=== PATIENT | male | born 1980 | race African-American/Black ===

== ENCOUNTER 2016-09-07 15:38 | Observation (INO) | payer BC, OTHER ==
[~2016-09-07] VITALS: Ht 190.5 cm; Wt 110.0 kg
[~2016-09-07 15:38] MED LIST: ALBU1AER INH; PRED20 PO
[2016-09-07 15:40] VITALS: BP 129/82; PULSE 84; RESP 20; TEMP 97.9; O2SAT 98
--- NOTE | 2016-09-07 15:57 | PD ---
HPI Chief Complaint: Chest Pain Time Seen by Provider: 15:56 Travel History International Travel<30 days: No Contact w/Intl Traveler<30days: No Traveled to known affect area: No History of Present Illness HPI 35-year-old male came to the emergency room with history of substernal chest pain for past 3 days. Patient says that he has a continuous pain for past 3 days which is like somebody sitting on his chest. He weighs the pain 7 out of 10. There is no radiation and he points to his substernal area. Patient is a smoker of half a pack cigarettes for past more than 15 years. His vital signs were stable. Patient has not seen a primary care in many years. He has significant family history of coronary artery disease. [facility] Past Medical History Narrative Medical List of his past medical history as reviewed from the nursing note. Asthma: Yes Diminished Hearing: No Respiratory: Yes (ASTHMA) Sickle Cell Disease: No Social History Alcohol Use: Yes (4 PACK DAILY) Tobacco Use: Yes (2 PPD) Substance Use: Yes Allergies-Medications (Allergen,Severity, Reaction): Coded Allergies: No Known Allergies (Verified , 09/07/16) Comments No known drug allergies. Reported Meds & Prescriptions Reported Meds & Active Scripts Active No Active Prescriptions or Reported Medications Narrative Medication List of his home medications reviewed from the nursing note. Review of Systems Except as stated in HPI: all other systems reviewed are Neg Physical Exam Narrative GENERAL: Awake, alert, anxious, mild distress SKIN: Warm and dry. HEAD: Atraumatic. Normocephalic. EYES: Pupils equal and round. No scleral icterus. No injection or drainage. ENT: No nasal bleeding or discharge. Mucous membranes pink and moist. NECK: Trachea midline. No JVD. CARDIOVASCULAR: Regular rate and rhythm. No murmur appreciated. RESPIRATORY: No accessory muscle use. Clear to auscultation. Breath sounds equal bilaterally. GASTROINTESTINAL: Abdomen soft, non-tender, nondistended. Hepatic and splenic margins not palpable. MUSCULOSKELETAL: No obvious deformities. No clubbing. No cyanosis. No edema. NEUROLOGICAL: Awake and alert. No obvious cranial nerve deficits. Motor grossly within normal limits. Normal speech. PSYCHIATRIC: Appropriate mood and affect; insight and judgment normal. Data Data Last Documented VS Vital Signs Date Time Temp Pulse Resp B/P Pulse Ox O2 Delivery O2 Flow Rate FiO2 09/07/16 15:40 97.9 84 20 129/82 98 Room Air Orders Electrocardiogram (09/07/16 16:03) Basic Metabolic Panel (Bmp) (09/07/16 16:03) Ckmb (Isoenzyme) Profile (09/07/16 16:03) Complete Blood Count With Diff (09/07/16 16:03) Magnesium (Mg) (09/07/16 16:03) Prothrombin Time / Inr (Pt) (09/07/16 16:03) Act Partial Throm Time (Ptt) (09/07/16 16:03) Troponin I (09/07/16 16:03) Lipase (09/07/16 16:03) Chest, Single Ap (09/07/16 16:03) Ecg Monitoring (09/07/16 16:03) Bilateral Bp Monitoring (09/07/16 16:03) Iv Access Insert/Monitor (09/07/16 16:03) Oximetry (09/07/16 16:03) Oxygen Administration (09/07/16 16:03) Aspirin Chew (Aspirin Chew) (09/07/16 16:15) Sodium Chloride 0.9% Flush (Ns Flush) (09/07/16 16:15) Pantoprazole Inj (Protonix Inj) (09/07/16 16:15) CKMB (09/07/16 16:12) CKMB% (09/07/16 16:12) Admit Order (Ed Use Only) (09/07/16 16:57) Place In Observation (09/07/16 16:57) Activity Bed Rest With Brp (09/07/16 16:57) Vital Signs (Adult) Q4H (09/07/16 16:57) Cardiac Rhythm .As Directed (09/07/16 16:57) ^ Notify Dr: Other .PRN (09/07/16 16:57) ^ Notify . Parameters (09/07/16 16:57) Resp Oxygen Nasal Cannula (09/07/16 ) Diet Heart Healthy (09/07/16 Dinner) ^ Obtain (09/07/16 16:57) Sodium Chloride 0.9% Flush (Ns Flush) (09/07/16 17:00) Sodium Chloride 0.9% Flush (Ns Flush) (09/07/16 21:00) Acetaminophen (Tylenol) (09/07/16 17:00) Ondansetron Inj (Zofran Inj) (09/07/16 17:00) Nitroglycerin Sl (Nitrostat Sl) (09/07/16 17:00) Home Health Lpn / Telemetry MICHAEL.Q8H (09/07/16 16:57) Labs Laboratory Tests Test 09/07/16 16:12 White Blood Count 7.4 TH/MM3 Red Blood Count 4.55 MIL/MM3 Hemoglobin 13.1 GM/DL Hematocrit 38.3 % Mean Corpuscular Volume 84.3 FL Mean Corpuscular Hemoglobin 28.7 PG Mean Corpuscular Hemoglobin 34.1 % Concent Red Cell Distribution Width 13.9 % Platelet Count 258 TH/MM3 Mean Platelet Volume 8.9 FL Neutrophils (%) (Auto) 64.5 % Lymphocytes (%) (Auto) 27.6 % Monocytes (%) (Auto) 4.2 % Eosinophils (%) (Auto) 2.5 % Basophils (%) (Auto) 1.2 % Neutrophils # (Auto) 4.8 TH/MM3 Lymphocytes # (Auto) 2.0 TH/MM3 Monocytes # (Auto) 0.3 TH/MM3 Eosinophils # (Auto) 0.2 TH/MM3 Basophils # (Auto) 0.1 TH/MM3 CBC Comment DIFF FINAL Differential Comment Prothrombin Time 11.2 SEC Prothromb Time International 1.0 RATIO Ratio Activated Partial 26.8 SEC Thromboplast Time Sodium Level 141 MEQ/L Potassium Level 3.8 MEQ/L Chloride Level 107 MEQ/L Carbon Dioxide Level 26.9 MEQ/L Anion Gap 7 MEQ/L Blood Urea Nitrogen 15 MG/DL Creatinine 0.99 MG/DL Estimat Glomerular Filtration 106 ML/MIN Rate Random Glucose 121 MG/DL Calcium Level 8.6 MG/DL Magnesium Level 2.3 MG/DL Total Creatine Kinase 576 U/L Creatine Kinase MB 5.0 NG/ML Creatine Kinase MB % 0.9 % Troponin I LESS THAN 0.02 NG/ML Lipase 119 U/L [facility] Medical Decision Making Medical Screen Exam Complete: Yes Emergency Medical Condition: Yes Medical Record Reviewed: Yes Interpretation(s) Twelve-lead EKG was reviewed by me. Normal sinus rhythm, normal axis, nonspecific ST-T wave changes. Heart rate of 78 bpm. Differential Diagnosis ACS, non-STEMI, nonspecific chest pain Narrative Course 5:03 PM blood test is back and CPK slightly elevated. Troponin is negative. However patient does have risk factors in the form off smoking and family history. Prefer to admit this patient to the chest pain center to rule out ACS. Procedures EKG Prior to Arrival: Yes Diagnosis Primary Impression: Chest pain Qualified Code: R07.9 - Chest pain, unspecified type Admitting Information Admitting Physician Requests: Observation Scripts No Active Prescriptions or Reported Meds Susanna Diop MD Sep 07, 2016 15:57 Admitting Physician Requests: Observation Scripts No Active Prescriptions or Reported Meds Susanna Diop MD Sep 07, 2016 15:57
[2016-09-07] MEDS ORDERED: SODIUM CHLORIDE 0.9% FLUSH 5 ML FLUSH IVF PRN ×2 (16:15→17:00)
[2016-09-07] MEDS ORDERED: PANTOPRAZOLE SODIUM 40 MG VIAL IV PUSH ONE (16:15)
[2016-09-07] MEDS ORDERED: ASPIRIN 81 MG CHEW TAB PO ONE (16:15)
[2016-09-07 16:27] LABS: AUTOMATED NEUTROPHIL # 4.8 TH/MM3 (1.8-7.7); BASOPHIL # 0.1 TH/MM3 (0-0.2); BASOPHIL % 1.2 % (0.0-2.0); EOSINOPHIL # 0.2 TH/MM3 (0-0.4); EOSINOPHIL % 2.5 % (0.0-4.0); HEMATOCRIT 38.3 % (39.0-51.0); HEMO FLAGS DIFF FINAL; LYMPH % 27.6 % (9.0-44.0); MEAN CELL VOLUME 84.3 FL (80.0-100.0); MEAN CORPUSCULAR HEMOGLOBIN 28.7 PG (27.0-34.0); MEAN CORPUSCULAR HGB CONC 34.1 % (32.0-36.0); MONO % 4.2 % (0.0-8.0); NEUT % 64.5 % (16.0-70.0); PLATELET COUNT 258 TH/MM3 (150-450); RED BLOOD COUNT 4.55 MIL/MM3 (4.50-5.90); RED CELL DISTRIBUTION WIDTH 13.9 % (11.6-17.2); WHITE BLOOD COUNT 7.4 TH/MM3 (4.0-11.0)
[2016-09-07 16:37] LABS: APTT (PATIENT) 26.8 SEC (24.3-30.1); PROTHROMBIN TIME - PATIENT 11.2 SEC (9.8-11.6)
[2016-09-07 16:45] LABS: ANION GAP 7 MEQ/L (5-15); BICARBONATE 26.9 MEQ/L (21.0-32.0); BLOOD UREA NITROGEN 15 MG/DL (7-18); CHLORIDE 107 MEQ/L (98-107); GLOMERULAR FILTRATION RATE 106 ML/MIN (>89); MAGNESIUM 2.3 MG/DL (1.5-2.5); SODIUM (NA) 141 MEQ/L (136-145)
[2016-09-07 16:46] LABS: POTASSIUM 3.8 MEQ/L (3.5-5.1)
[2016-09-07 16:49] LABS: CREATINE KINASE 576 U/L (39-308)
[2016-09-07 17:00] VITALS: BP 128/74; PULSE 82; RESP 18; O2SAT 95
[2016-09-07] MEDS ORDERED: NITROGLYCERIN 0.4 MG SL 25 TABS/BTL SL PRN (17:00)
[2016-09-07] MEDS ORDERED: ONDANSETRON HCL 4 MG/2 ML VIAL IV PRN (17:00)
[2016-09-07] MEDS ORDERED: ACETAMINOPHEN 500 MG CPLT PO PRN (17:00)
--- NOTE | 2016-09-07 17:05 | RADRPT ---
EXAM DATE/TIME: 09/07/2016 16:28 [facility] COMPARISON: No previous studies available for comparison. INDICATIONS : Mid Sternal chest pains x3 days MEDICAL HISTORY : Asthma SURGICAL HISTORY : None. ENCOUNTER: Initial ACUITY: 1 day PAIN SCORE: 7/10 LOCATION: Bilateral chest FINDINGS: A single view of the chest demonstrates the lungs to be symmetrically aerated without evidence of mas s, infiltrate or effusion. The cardiomediastinal contours are unremarkable. Osseous structures are intact. CONCLUSION: The lungs are clear. Angel Koenig MD on September 07, 2016 at 17:04 Board Certified Radiologist. This report was verified electronically.
--- NOTE | 2016-09-07 17:51 | EKG ---
Date Performed: 09/07/2016 Time Performed: 16:00:24 PTAGE: 35 years EKG: Sinus rhythm NORMAL ECG NO PREVIOUS TRACING DOCTOR: Ernie June Interpretating Date/Time 09/07/2016 17:49:43
[2016-09-07 18:00] VITALS: BP 132/74; PULSE 76; RESP 19; O2SAT 96
[2016-09-07 19:26] VITALS: BP 144/71; PULSE 74; RESP 20; O2SAT 98
[2016-09-07] MEDS ORDERED: LIDOCAINE VISCOUS 2% SOLN 15 ML UDC SWISH-SWAL ONE (20:00)
[2016-09-07] MEDS ORDERED: ALUMINUM/MAGNESIUM/SIMETH 30 ML CUP PO ONE (20:00)
[2016-09-07 20:13] LABS: CREATINE KINASE 473 U/L (39-308)
[2016-09-07] MEDS: SODIUM CHLORIDE 0.9% FLUSH 5 ML FLUSH IVF SCH (20:46)
[2016-09-07 21:00] VITALS: BP 112/67; PULSE 68; RESP 16; TEMP 96.9; O2SAT 100
--- NOTE | 2016-09-07 22:08 | EKG ---
Date Performed: 09/07/2016 Time Performed: 19:32:07 PTAGE: 35 years EKG: Sinus rhythm NORMAL ECG PREVIOUS TRACING : 09/07/2016 16.00 DOCTOR: Zander Eastman Interpretating Date/Time 09/07/2016 22:06:54
[2016-09-07 23:06] LABS: CREATINE KINASE 484 U/L (39-308)
[2016-09-07 23:19] LABS: CKMB 4.1 NG/ML (0.5-3.6)
[2016-09-08 00:19] VITALS: BP 118/67; PULSE 67; RESP 18; TEMP 98; O2SAT 98
[2016-09-08 04:00] VITALS: BP 118/67; PULSE 67; RESP 18; TEMP 97.6; O2SAT 97
[2016-09-08 04:47] VITALS: O2SAT 98
[2016-09-08] MEDS: PANTOPRAZOLE SOD 40 MG DELAYED RELEASE TAB PO SCH ×2 (06:00→09:15)
[2016-09-08 08:07] VITALS: BP 126/67; PULSE 75; RESP 20; TEMP 98; O2SAT 95
--- NOTE | 2016-09-08 08:38 | MH ---
cc: LINCOLN OLIVERA MD DATE OF ADMISSION 09/07/2016 DATE OF 1980 CHIEF COMPLAINT Chest pain. HISTORY OF PRESENT ILLNESS This is a 35-year-old patient presents to the emergency room with an onset of chest pain 3 days ago. The patient states after eating in fact, every time after eating he develops substernal chest pressure that does not subside until about 45-60 minutes after eating. Position does not affect his pain. There are no associated symptoms, although first time this chest discomfort happened he was nauseous. He describes the feeling as a pressure that it is "wall inside my chest". No associated symptoms. Precipitating factors is eating. No known relieving factors. The patient does not have a history of acid reflux. Denies a sour taste in his mouth and has not tried any zrry-pho-zmtlzex remedies. PAST MEDICAL HISTORY Includes: Asthma. FAMILY HISTORY Noncontributory for any early onset cardiovascular disease. SOCIAL HISTORY He has smoked a one-half pack of cigarettes since age of 16. He continues to smoke. He endorses he drinks alcohol although is very vague in to how much he drinks. Denies any illegal drug use. No known hypertension, diabetes, hyperlipidemia. States he is active, rides his bike to work. He works at [employer]. When he rides his bike over the past 3 days chest discomfort as described above does return although in a much more "mild form". PAST CARDIAC TESTING None. ALLERGIES HE HAS NO ALLERGIES TO MEDICINES. MEDICATIONS He does not take any prescription medicines or vitamins or supplements. REVIEW OF SYSTEMS GENERAL: He has been in his general state of health with no recent illness, fatigue, fevers, chills or change in appetite despite this feeling that he gets after eating. HEENT: No headache or visual changes. No dysphagia. States he does not feel after eating food gets stuck anywhere in his esophagus. CARDIOVASCULAR: As stated above. Denies palpitations intermittent leg pain or dizziness. RESPIRATORY: No shortness of breath, cough, wheeze, hemoptysis. ABDOMEN: No nausea, vomiting, diarrhea, in fact, he has not had a bowel movement in over 3 days, this is uncommon for him. No pain, distension, blood in the stool or dark stool. GENITOURINARY: No dysuria or urgency, frequency or hematuria. EXTREMITIES: No lower leg edema. MUSCULOSKELETAL: No change in range of motion. NEUROLOGICAL: No difficulty with balance, motor or sensory deficits, loss of consciousness, change in memory. PSYCHIATRIC: No anxiety or depression. PHYSICAL EXAMINATION VITAL SIGNS: Temperature is 97.9, pulse 84, respiratory 20, blood pressure 129/82 and pulse oximetry 98% on room air. GENERAL: He is alert, well-nourished, well-developed in no acute distress pleasant -[place] male. HEENT: Head is normocephalic, atraumatic. Eyes, sclerae are clear. Pupils are equal and round. Ear, nose, and throat, mucous membranes are pink and moist. NECK: Supple. Trachea is midline. CARDIOVASCULAR: Regular rate and rhythm without murmur, rub or gallop. No JVD. S1-S2. No S3. No S4. LUNGS: Clear lungs throughout bilaterally with no crackles, wheeze or rhonchi. He has a symmetric chest rise. ABDOMEN: Soft, nondistended. No masses. Positive bowel tones. He is tender in the epigastric area. BACK: No CVA tenderness and no scoliosis. EXTREMITIES: Pulses +2 x4. No dependent edema. MUSCULOSKELETAL: Normal tone x4. He is tender in the substernal chest wall upon palpation both left and right. No obvious deformities. NEUROLOGICAL: Cranial nerves II-XII grossly intact. Motor strength 5/5. PSYCHIATRIC: He is alert, oriented x3, has a pleasant affect appropriate to mood, insight and judgment. SKIN: Warm and dry. Normal turgor, normal texture with no lesions or rashes. LABORATORY CBC is unremarkable. Chemistry has a random glucose of 121 otherwise unremarkable. Two sets of cardiac enzymes are negative. Total creatinine kinase first set is 576. Second is 473. Coagulation is unremarkable. IMAGING Chest x-ray read by the radiologist has conclusion of lungs are clear. And first EKG shows a normal sinus rhythm with no ST or T segment changes. ASSESSMENT/PLAN 1. Chest pain. The patient has been admitted to the chest pain center. He will undergo three sets of EKGs, cardiac enzymes and be monitored overnight. He will be seen and evaluated by Dr. Lincoln Olivera in the a.m. This has been discussed with both the patient and his practice management consultant who is at bedside and they are agreeable to this plan of care. Discussed the likelihood that he may undergo an exercise stress test in the a.m. if skein tier feels it is warranted and he is agreeable to this plan of care as well. 2. Gastroesophageal reflux disease. Protonix 40 mg oral and GI cocktail has been ordered. 3. The patient has been encouraged to establish with a primary care provider. He will most likely be discharged in the morning if all his testing comes back unremarkable. Dictated by: KEVIN Reagan MD DINORAH Villalba/KK /8:18 PM /8:37 AM
[2016-09-08] MEDS ORDERED: ASPIRIN 325 MG TAB PO SCH (09:00)
[2016-09-08] MEDS: SODIUM CHLORIDE 0.9% FLUSH 5 ML FLUSH IVF SCH (09:15)
[2016-09-08 11:42] VITALS: PULSE 68
[2016-09-08] MEDS ORDERED: IOHEXOL 350 MG/ML 10 ML VIAL (for RAD DIAG) IV ONE (12:18)
[2016-09-08 12:22] VITALS: BP 115/70; PULSE 77; RESP 20; TEMP 97.5; O2SAT 99
--- NOTE | 2016-09-08 12:31 | RADRPT ---
EXAM DATE/TIME: 09/08/2016 12:13 [facility] COMPARISON: CHEST SINGLE AP, September 07, 2016, 16:28. INDICATIONS : Chest pain. Difficulty breathing. IV CONTRAST: 70 cc Omnipaque 350 (iohexol) IV RADIATION DOSE: 20.05 CTDIvol (mGy) MEDICAL HISTORY : None SURGICAL HISTORY : None. ENCOUNTER: Initial ACUITY: 3 days PAIN SCALE: 4/10 LOCATION: Bilateral chest TECHNIQUE: Volumetric scanning of the chest was performed using a pulmonary embolism protocol MIP images were re constructed. Using automated exposure control and adjustment of the mA and/or kV according to patien t size, radiation dose was kept as low as reasonably achievable to obtain optimal diagnostic quality images. FINDINGS: PULMONARY ARTERIES: No filling defects are seen in the pulmonary arteries through the segmental level. LUNGS: There is no consolidation or pneumothorax . No concerning pulmonary nodule is visualized. Few small blind noted in the upper lobes. PLEURAE: There is no pleural thickening or pleural effusion. MEDIASTINUM: There is good visualization of the great vessels of the middle mediastinum. No evidence of mediastin al or hilar adenopathy/mass. Small retrocardiac hiatal hernia MUSCULOSKELETAL: Within normal limits for patient age. MISCELLANEOUS: The visualized upper abdominal organs demonstrate no acute abnormality. CONCLUSION: No evidence of pulmonary embolism or acute cardiopulmonary process. Few small blind noted in the uppe r lobes. Negative for pulmonary embolization. Adriel Young MD on September 08, 2016 at 12:27 Board Certified Radiologist. This report was verified electronically.
--- NOTE | 2016-09-08 12:40 | HHI.DCPOC ---
Discharge Care Plan Diagnosis: (1) Chest pain (2) Tobacco abuse Goals to Promote Your Health * To prevent worsening of your condition and complications * To maintain your health at the optimal level Directions to Meet Your Goals Take your medications as prescribed Follow your dietary instruction Follow activity as directed Keep your appointments as scheduled Take your immunizations and boosters as scheduled If your symptoms worsen call your PCP, if no PCP go to Urgent Care Center or Emergency Room Smoking is Dangerous to Your Health. Avoid second hand smoke Call the 24-hour hour crisis hotline for domestic abuse at Darian Dickinson Sep 08, 2016 12:40
--- NOTE | 2016-09-08 13:35 | EKG ---
Date Performed: 09/07/2016 Time Performed: 22:45:16 PTAGE: 35 years EKG: Sinus rhythm WITH SINUS ARRHYTHMIA NORMAL ECG PREVIOUS TRACING : 09/07/2016 19.32 Since previous tracing, no significant change noted DOCTOR: Lincoln Olivera Interpretating Date/Time 09/08/2016 13:33:49
--- NOTE | 2016-09-08 13:41 | TR ---
Date Performed: 09/08/2016 Time Performed: 09:26:51 DOCTOR: Lincoln Olivera DRUG LIST: CLINICAL HISTORY: CHEST PAIN/RULE OUT ACS REASON FOR TEST: REASON FOR ENDING: OBSERVATION: CONCLUSION: lyla protocol. NO CP. TEST STOPPED AFTER EXCEEDING GOAL HR SECONDARY TO SOB AND LEG FATIGUE.Maximum MJ=865 % Max HR Achieved=90.0% Maximum JK=329/70 Total Exercise Time=10:20 COMMENTS: Patient exercised using the Lyla protocol. No electrocardiographic changes were seen to suggest ischemia. Hemodynamic response to exercise was normal. No significant arrhythmia was prese nt.
== END 2016-09-08 13:47 | disposition home or self-care (01) ==
LOC: NEPC 15:38 → NEDA 16:59 → NEPFCDU 20:12
PROVIDERS: ADMIT Family Medicine; ATTEND Family Medicine
DX: R07.9 Chest pain, unspecified (principal); J45.909 Unspecified asthma, uncomplicated; K21.9 Gastro-esophageal reflux disease without esophagitis; Z72.0 Tobacco use; Z82.49 Family history of ischemic heart disease and other diseases of the circulatory system
CPT/HCPCS: 71010; 71275; 80048; 82550; 82552; 83690; 83735; 84484; 85025; 85379; 85610; 85730; 93005; 93017; 96374; 99285; C9113; G0378; Q9967

== ENCOUNTER 2017-01-17 14:33 | Emergency (ER) | payer SELFPAY ==
[2017-01-17 14:34] VITALS: BP 120/75; PULSE 86; RESP 20; TEMP 98.6; O2SAT 98
[2017-01-17] MEDS ORDERED: AUGM875T3 PO (15:08)
[2017-01-17] MEDS ORDERED: IBUP800T23 PO (15:08)
[2017-01-17] MEDS ORDERED: MOME17I EACH NARE (15:08)
--- NOTE | 2017-01-17 15:09 | PD ---
HPI Chief Complaint: Cold / Flu Symptoms Time Seen by Provider: 15:06 Travel History International Travel<30 days: No Contact w/Intl Traveler<30days: No Traveled to known affect area: No History of Present Illness HPI 36-year-old male presents to emergency Department with complaint of nasal congestion, facial pressure, headache, ear pressure, throat irritation 4 days. Reports occasional cough. Denies chest tightness, shortness of breath, wheezing. Says he is coughing up green sputum. Reports feeling fever and chills, but has not taken his temperature and Reported MAXIMUM TEMPERATURE. Denies nausea, vomiting, abdominal pain. Has been taking [id number] Mucinex for symptom management. No known allergies. No other medical complaints. No other modifying factors or associated signs and symptoms. PFSH Past Medical History Asthma: Yes Cardiovascular Problems: No Diminished Hearing: No Respiratory: Yes (ASTHMA) Sickle Cell Disease: No Tetanus Vaccination: > 5 Years Influenza Vaccination: Yes Family History Family Myocardial Infarction: Yes Social History Alcohol Use: Yes (ocassionally) Tobacco Use: Yes (1 PPD) Substance Use: No Allergies-Medications (Allergen,Severity, Reaction): Coded Allergies: No Known Allergies (Verified , 01/17/17) Reported Meds & Prescriptions Reported Meds & Active Scripts Active Ibuprofen 800 Mg Tab 800 Mg PO Q6HR PRN Nasonex Nasal [place] (Mometasone Furoate) 50 Mcg/Act Naspr 2 [place] EACH NARE DAILY PRN Augmentin (Amoxicillin-Clavulanate) 875-125 Mg Tab 1 Tab PO BID 7 Days Review of Systems Except as stated in HPI: all other systems reviewed are Neg Physical Exam Narrative GENERAL: Well-nourished, well-developed male patient, in no acute distress; afebrile, nontoxic-appearing SKIN: Warm and dry. No rash. HEAD: Atraumatic. Normocephalic. Frontal and maxillary sinus tenderness on palpation. EYES: Pupils equal and round at 3 mm with brisk reaction. No scleral icterus. No injection or drainage. PERRLA. ENT: Mucosa pink and moist. Oropharynx with erythema; without exudates or tonsillar edema.. No uvular edema. No uvular, palatal, or tonsillar deviation. Airway patent. EARS: Bilateral pinnae and external canals appear within normal limits. Bilateral tympanic membranes without erythema, dullness or perforation. NECK: Trachea midline. No lymphadenopathy. CARDIOVASCULAR: Regular rate and rhythm. No murmur appreciated. RESPIRATORY: No accessory muscle use. Clear to auscultation. Breath sounds equal bilaterally. GASTROINTESTINAL: Abdomen soft, non-tender, nondistended. Hepatic and splenic margins not palpable. Bowel sounds are active 4 quadrants. MUSCULOSKELETAL: No obvious deformities. No clubbing. No cyanosis. No edema. NEUROLOGICAL: Awake and alert. Oriented 3. No obvious cranial nerve deficits. Motor grossly within normal limits. Normal speech. Moves all extremities. 5/5 strength to all extremities. PSYCHIATRIC: Appropriate mood and affect; insight and judgment normal. Data Data Last Documented VS Vital Signs Date Time Temp Pulse Resp B/P Pulse Ox O2 Delivery O2 Flow Rate FiO2 01/17/17 14:59 18 98 Room Air 01/17/17 14:34 98.6 86 120/75 MDM Medical Decision Making Medical Screen Exam Complete: Yes Emergency Medical Condition: Yes Medical Record Reviewed: Yes Differential Diagnosis Viral illness, sinusitis, upper respiratory infection, influenza, bronchitis Narrative Course 36-year-old male physical examination history of present illness consistent with sinusitis. Patient is afebrile and nontoxic-appearing. Reports subjective fever and chills. Augmentin, Nasonex nasal spray, ibuprofen prescribed for home. Patient verbalizes understanding and agreement with treatment plan. Patient is medically cleared and stable for discharge. Discussed reasons to return to the emergency department. Instructed patient to follow up with primary care provider. Patient agrees with treatment plan. The patients vital signs are stable and the patient is stable for outpatient follow- up and treatment. Patient discharged home, stable and in no acute distress. Diagnosis Primary Impression: Sinusitis Qualified Code: J32.9 - Sinusitis, unspecified chronicity, unspecified location Referrals: Primary Care Physician Patient Instructions: Cold Symptoms (ED), General Instructions, Safe Use of Cough and Cold Medicines (ED), Sinusitis (ED) Departure Forms: Tests/Procedures, Work Release Enter return to work date: Jan 19, 2017 Additional Instructions: Antibiotics as prescribed and complete full course Ibuprofen or Tylenol as instructed and as needed for fever/pain [id number] cough and cold medications as directed and as needed for symptom management Get plenty of sleep/rest Drink plenty of fluids to prevent dehydration; popsicles and Gatorade Use an air humidifier/turn off ceiling fans Follow-up with primary care provider Return immediately to the emergency department with worsening of symptoms Med/Other Pt SpecificInfo: Prescription(s) given Scripts Ibuprofen 800 Mg [id number] Mg PO Q6HR PRN (PAIN) #30 TAB Ref 0 Prov:Kizzy Malone 01/17/17 Mometasone Nasal [place] (Nasonex Nasal [place])50 Mcg/Act Naspr2 [place] EACH NARE DAILY PRN (NASAL CONGESTION) #1 BOTTLE Ref 0 Prov:Kizzy Malone 01/17/17 Amoxicillin-Clavulanate (Augmentin)875-125 Mg Tab1 Tab PO BID 7 Days Ref 0 Prov:Kizzy Malone 01/17/17 Disposition: 01 DISCHARGE HOME Condition: Stable Kizzy Malone Jan 17, 2017 15:09
[2017-01-17 15:27] VITALS: BP 118/76; TEMP 97.8
== END 2017-01-17 15:27 | disposition home or self-care (01) ==
LOC: NEPK 14:33
DX: J32.9 Chronic sinusitis, unspecified (principal); R05 Cough; J45.909 Unspecified asthma, uncomplicated; F17.210 Nicotine dependence, cigarettes, uncomplicated; R50.9 Fever, unspecified
CPT/HCPCS: 99284

== ENCOUNTER 2017-02-10 10:20 | Emergency (ER) | payer SELFPAY ==
[~2017-02-10 10:20] MED LIST changes: -ALBU1AER INH; +AUGM875T3 PO; +IBUP800T23 PO; +MOME17I EACH NARE; -PRED20 PO
[2017-02-10 10:21] VITALS: BP 123/82; PULSE 73; RESP 18; TEMP 98.5; O2SAT 99
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
[2017-02-10] MEDS ORDERED: IBUP800T23 PO (11:56)
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
[2017-02-10] MEDS ORDERED: IBUPROFEN 800 MG TAB PO ONE (13:30)
== END 2017-02-10 13:51 | disposition home or self-care (01) ==
LOC: NEPD 10:20
DX: S69.91XA Unspecified injury of right wrist, hand and finger(s), initial encounter (principal); S00.83XA Contusion of other part of head, initial encounter; S99.911A Unspecified injury of right ankle, initial encounter; Y04.2XXA Assault by strike against or bumped into by another person, initial encounter; Y00.XXXA Assault by blunt object, initial encounter; Y93.9 Activity, unspecified; Y92.9 Unspecified place or not applicable; Y99.9 Unspecified external cause status
CPT/HCPCS: 70450; 70486; 73130; 73610

== ENCOUNTER 2017-07-22 18:18 | Emergency (ER) | payer SELFPAY ==
[~2017-07-22] VITALS: Ht 190.5 cm; Wt 100.0 kg
[~2017-07-22 18:18] MED LIST changes: -AUGM875T3 PO; +IBUP1TAB7 PO; -IBUP800T23 PO; -MOME17I EACH NARE
[2017-07-22 18:19] VITALS: BP 140/80; PULSE 103; RESP 14; TEMP 98.4; O2SAT 99
[2017-07-22] MEDS ORDERED: TETANUS/DIPHTHERIA TOXOID ADULT 0.5 ML VIAL IM ONE (19:15)
[2017-07-22] MEDS ORDERED: LIDOCAINE HCL 1% 50 ML VIAL INFIL ONE (19:15)
--- NOTE | 2017-07-22 19:31 | PD ---
HPI Chief Complaint: Laceration/Skin Injury Time Seen by Provider: 19:10 Travel History International Travel<30 days: No Contact w/Intl Traveler<30days: No Traveled to known affect area: No History of Present Illness HPI [id number] male presents for evaluation of a laceration to left fourth finger. He reports that he was attempting to pry apart 2 frozen hamburgers with a knife when the knife slipped and cut his finger. He has pain, throbbing , worse with palpation, associated bleeding. Denies numbness, tingling, range of motion limitation. Last tetanus vaccination one ago. No other complaints. PFSH Past Medical History Asthma: Yes Cardiovascular Problems: No Diminished Hearing: No Respiratory: Yes (ASTHMA) Sickle Cell Disease: No Family History Family Myocardial Infarction: Yes Social History Alcohol Use: Yes (ocassionally) Tobacco Use: Yes (1/2 PPD) Substance Use: No Allergies-Medications (Allergen,Severity, Reaction): Coded Allergies: No Known Allergies (Verified Adverse Reaction, Unknown, 07/22/17) Reported Meds & Prescriptions Reported Meds & Active Scripts Active No Active Prescriptions or Reported Medications Review of Systems General / Constitutional: No: Fever, Chills Musculoskeletal: No: Limited ROM Skin: Positive Other (positive for laceration, pain, bleeding) Neurologic: No: Paresthesia Physical Exam Narrative GENERAL: Well-nourished male in no acute distress SKIN: Warm and dry. 1.5 cm linear laceration to the medial aspect of the distal left fourth finger. There is mild bleeding with no pulsating blood. CARDIOVASCULAR: Regular rate and rhythm. No murmur appreciated. RESPIRATORY: No accessory muscle use. Clear to auscultation. Breath sounds equal bilaterally. Extremities: Skin as noted above. The patient has full flexion and extension of the affected digit. Distal sensation is preserved on the medial and lateral aspect. Capillary refill less than 2 seconds. Data Data Last Documented VS Vital Signs Date Time Temp Pulse Resp B/P (MAP) Pulse Ox O2 Delivery O2 Flow Rate FiO2 07/22/17 18:19 98.4 103 14 140/80 (100) 99 Orders Orders Lidocaine 1% Inj (50 Ml) (Xylocaine 1% I (07/22/17 19:15) Tetanus/Diphtheria Tox Adult (Tetanus/Di (07/22/17 19:15) MDM Medical Decision Making Medical Screen Exam Complete: Yes Emergency Medical Condition: Yes Medical Record Reviewed: Yes Differential Diagnosis Cutaneous laceration, neurovascular injury, open fracture, flexor tendon injury Narrative Course 36-year-old male presents for evaluation of a laceration to the distal left fourth finger. The laceration will be repaired with sutures, he verbally consents. Procedures Procedure Narrative LACERATION LOCATION: Left fourth finger LENGTH: 1.5 cm NUMBER OF STITCHES/CHRISTIAN: 6 REPAIR: The area of the laceration was prepped with Betadine and sterilely draped. The laceration was infiltrated with 1% lidocaine digital block. The wound was copiously irrigated and explored without evidence of foreign body, tendon injury or neurovascular injury. The wound was closed using 5-0 PROLENE simple interrupted. This was a single layer repair. A sterile dressing was applied. The patient was advised to keep the dressing clean and dry. Patient tolerated the procedure well. Diagnosis Primary Impression: Finger laceration Additional Instructions: Wash gently with soap and water and apply antibiotic cream and clean bandages daily. Return in 10-14 days for suture removal. Med/Other Pt SpecificInfo: Wound Care Scripts No Active Prescriptions or Reported Meds Disposition: 01 DISCHARGE HOME Condition: Stable Vinny Bradshaw Jul 22, 2017 19:31
== END 2017-07-22 20:01 | disposition home or self-care (01) ==
LOC: NEPD 18:18
DX: S61.215A Laceration without foreign body of left ring finger without damage to nail, initial encounter (principal); F17.200 Nicotine dependence, unspecified, uncomplicated; J45.909 Unspecified asthma, uncomplicated; W26.0XXA Contact with knife, initial encounter; Z23 Encounter for immunization
CPT/HCPCS: 12001; 90471; 90714

== ENCOUNTER 2018-01-29 16:21 | Emergency (ER) | payer OTHER ==
[~2018-01-29] VITALS: Ht 188 cm; Wt 97.5 kg
[2018-01-29 16:44] VITALS: BP 136/74; PULSE 90; RESP 16; TEMP 97.6; O2SAT 98
[2018-01-29 17:55] LABS: INTERNATIONAL NORMALIZED RATIO 1.1 RATIO; PROTHROMBIN TIME - PATIENT 11.1 SEC (9.8-11.6)
[2018-01-29 18:03] LABS: AUTOMATED NEUTROPHIL # 8.6 TH/MM3 (1.8-7.7); BASOPHIL # 0.1 TH/MM3 (0-0.2); BASOPHIL % 0.7 % (0.0-2.0); EOSINOPHIL # 0.1 TH/MM3 (0-0.4); HEMATOCRIT 42.7 % (39.0-51.0); HEMOGLOBIN 14.7 GM/DL (13.0-17.0); LYMPHOCYTE # 2.7 TH/MM3 (1.0-4.8); MEAN CORPUSCULAR HEMOGLOBIN 28.9 PG (27.0-34.0); MEAN CORPUSCULAR HGB CONC 34.4 % (32.0-36.0); MEAN PLATELET VOLUME 8.4 FL (7.0-11.0); MONO % 2.8 % (0.0-8.0); MONOCYTE # 0.3 TH/MM3 (0-0.9); NEUT % 72.5 % (16.0-70.0); PLATELET COUNT 298 TH/MM3 (150-450); RED BLOOD COUNT 5.08 MIL/MM3 (4.50-5.90); RED CELL DISTRIBUTION WIDTH 13.9 % (11.6-17.2); WHITE BLOOD COUNT 11.8 TH/MM3 (4.0-11.0)
[2018-01-29 18:12] LABS: ALBUMIN 4.3 GM/DL (3.4-5.0); ALT (GPT) 34 U/L (12-78); AST (GOT) 22 U/L (15-37); BICARBONATE 27.2 MEQ/L (21.0-32.0); BLOOD UREA NITROGEN 14 MG/DL (7-18); CALCIUM 9.3 MG/DL (8.5-10.1); CHLORIDE 105 MEQ/L (98-107); GLOMERULAR FILTRATION RATE 103 ML/MIN (>89); GLUCOSE,RANDOM 100 MG/DL (74-106); SODIUM (NA) 139 MEQ/L (136-145)
[2018-01-29 18:14] LABS: ALKALINE PHOSPHATASE 84 U/L (45-117); TOTAL PROTEIN 8.7 GM/DL (6.4-8.2)
[2018-01-29 18:35] VITALS: O2SAT 98
[2018-01-29 18:36] VITALS: BP 137/89; PULSE 75; RESP 18; O2SAT 98
--- NOTE | 2018-01-29 18:43 | PD ---
HPI Chief Complaint: GI Complaint Time Seen by Provider: 18:37 Travel History International Travel<30 days: No Contact w/Intl Traveler<30days: No Traveled to known affect area: No History of Present Illness HPI 37-year-old male with history of asthma, presents emergency department for evaluation of abdominal pain. Patient states it began this morning. It has been generalized but stems from the epigastric area and radiates to the right upper quadrant. He denies any fever or chills. He has been nauseous. He did have one episode of vomiting. He states that he thinks there may have been blood streaks in the emesis. He denies any diarrhea. He denies any history of abdominal surgeries. He is having no urinary symptoms. He has no other symptoms to report. [facility] Past Medical History Asthma: Yes Cardiovascular Problems: No Diminished Hearing: No Respiratory: Yes Sickle Cell Disease: No Family History Family Myocardial Infarction: Yes Social History Alcohol Use: Yes (ocassionally) Tobacco Use: Yes (1/2 PPD) Substance Use: No Allergies-Medications (Allergen,Severity, Reaction): Coded Allergies: No Known Allergies (Verified Adverse Reaction, Unknown, 01/29/18) Reported Meds & Prescriptions Reported Meds & Active Scripts Active Active Prescriptions or Reported Medications Unobtainable Review of Systems Except as stated in HPI: all other systems reviewed are Neg Physical Exam Narrative GENERAL: Well-nourished male patient, in no acute distress SKIN: Focused skin assessment warm/dry. HEAD: Atraumatic. Normocephalic. EYES: Pupils equal and round. No scleral icterus. No injection or drainage. ENT: No nasal bleeding or discharge. Mucous membranes pink and moist. NECK: Trachea midline. No JVD. CARDIOVASCULAR: Regular rate and rhythm. No murmur appreciated. RESPIRATORY: No accessory muscle use. Clear to auscultation. Breath sounds equal bilaterally. GASTROINTESTINAL: Abdomen soft, nondistended. Epigastric tenderness to palpation. No guarding. No rebound tenderness.. Hepatic and splenic margins not palpable. MUSCULOSKELETAL: No obvious deformities. No clubbing. No cyanosis. No edema. NEUROLOGICAL: Awake and alert. No obvious cranial nerve deficits. Motor grossly within normal limits. Normal speech. PSYCHIATRIC: Appropriate mood and affect; insight and judgment normal. Data Data Last Documented VS Vital Signs Date Time Temp Pulse Resp B/P (MAP) Pulse Ox O2 Delivery O2 Flow Rate FiO2 6/22/18 18:36 75 18 137/89 (105) 98 Room Air 01/29/18 16:44 97.6 Orders Orders Complete Blood Count With Diff (01/29/18 16:49) Comprehensive Metabolic Panel (01/29/18 16:49) Prothrombin Time / Inr (Pt) (01/29/18 16:49) Act Partial Throm Time (Ptt) (01/29/18 16:49) Ecg Monitoring (01/29/18 16:49) Orthostatic Vital Signs (01/29/18 16:49) Oximetry (01/29/18 16:49) Oxygen Administration (01/29/18 16:49) Iv Access Insert/Monitor (01/29/18 16:49) Type And Screen (01/29/18 16:49) Pantoprazole Inj (Protonix Inj) (01/29/18 19:00) Sodium Chlor 0.9% 1000 Ml Inj (Ns 1000 M (01/29/18 19:00) Ct Abd/Pel W Iv Contrast(Rout) (01/29/18 ) Ketorolac Inj (Toradol Inj) (01/29/18 19:00) Iohexol 350 Inj (Omnipaque 350 Inj) (01/29/18 19:50) Electrocardiogram (01/29/18 18:37) Ed Discharge Order (01/29/18 21:02) Labs Laboratory Tests Test 01/29/18 17:28 White Blood Count 11.8 TH/MM3 Red Blood Count 5.08 MIL/MM3 Hemoglobin 14.7 GM/DL Hematocrit 42.7 % Mean Corpuscular Volume 84.0 FL Mean Corpuscular Hemoglobin 28.9 PG Mean Corpuscular Hemoglobin Concent 34.4 % Red Cell Distribution Width 13.9 % Platelet Count 298 TH/MM3 Mean Platelet Volume 8.4 FL Neutrophils (%) (Auto) 72.5 % Lymphocytes (%) (Auto) 23.0 % Monocytes (%) (Auto) 2.8 % Eosinophils (%) (Auto) 1.0 % Basophils (%) (Auto) 0.7 % Neutrophils # (Auto) 8.6 TH/MM3 Lymphocytes # (Auto) 2.7 TH/MM3 Monocytes # (Auto) 0.3 TH/MM3 Eosinophils # (Auto) 0.1 TH/MM3 Basophils # (Auto) 0.1 TH/MM3 CBC Comment DIFF FINAL Differential Comment Prothrombin Time 11.1 SEC Prothromb Time International Ratio 1.1 RATIO Activated Partial Thromboplast Time 28.4 SEC Blood Urea Nitrogen 14 MG/DL Creatinine 1.00 MG/DL Random Glucose 100 MG/DL Total Protein 8.7 GM/DL Albumin 4.3 GM/DL Calcium Level 9.3 MG/DL Alkaline Phosphatase 84 U/L Aspartate Amino Transf (AST/SGOT) 22 U/L Alanine Aminotransferase (ALT/SGPT) 34 U/L Total Bilirubin 1.0 MG/DL Sodium Level 139 MEQ/L Potassium Level 3.9 MEQ/L Chloride Level 105 MEQ/L Carbon Dioxide Level 27.2 MEQ/L Anion Gap 7 MEQ/L Estimat Glomerular Filtration Rate 103 ML/MIN [facility] Medical Decision Making Medical Screen Exam Complete: Yes Emergency Medical Condition: Yes Medical Record Reviewed: Yes Differential Diagnosis Gastritis versus cholecystitis versus pancreatitis versus indigestion Narrative Course 37-year-old male presents emergency department for evaluation of epigastric pain with associated nausea vomiting. Patient appears without distress. He has not had any episodes of emesis while here. His vital signs are stable. He does have some epigastric tenderness to palpation. Laboratory Tests Test 01/29/18 17:28 White Blood Count 11.8 TH/MM3 Red Blood Count 5.08 MIL/MM3 Hemoglobin 14.7 GM/DL Hematocrit 42.7 % Mean Corpuscular Volume 84.0 FL Mean Corpuscular Hemoglobin 28.9 PG Mean Corpuscular Hemoglobin Concent 34.4 % Red Cell Distribution Width 13.9 % Platelet Count 298 TH/MM3 Mean Platelet Volume 8.4 FL Neutrophils (%) (Auto) 72.5 % Lymphocytes (%) (Auto) 23.0 % Monocytes (%) (Auto) 2.8 % Eosinophils (%) (Auto) 1.0 % Basophils (%) (Auto) 0.7 % Neutrophils # (Auto) 8.6 TH/MM3 Lymphocytes # (Auto) 2.7 TH/MM3 Monocytes # (Auto) 0.3 TH/MM3 Eosinophils # (Auto) 0.1 TH/MM3 Basophils # (Auto) 0.1 TH/MM3 CBC Comment DIFF FINAL Differential Comment Prothrombin Time 11.1 SEC Prothromb Time International Ratio 1.1 RATIO Activated Partial Thromboplast Time 28.4 SEC Blood Urea Nitrogen 14 MG/DL Creatinine 1.00 MG/DL Random Glucose 100 MG/DL Total Protein 8.7 GM/DL Albumin 4.3 GM/DL Calcium Level 9.3 MG/DL Alkaline Phosphatase 84 U/L Aspartate Amino Transf (AST/SGOT) 22 U/L Alanine Aminotransferase (ALT/SGPT) 34 U/L Total Bilirubin 1.0 MG/DL Sodium Level 139 MEQ/L Potassium Level 3.9 MEQ/L Chloride Level 105 MEQ/L Carbon Dioxide Level 27.2 MEQ/L Anion Gap 7 MEQ/L Estimat Glomerular Filtration Rate 103 ML/MIN Last Impressions Abdomen/Pelvis CT 01/29/18 0000 Signed Impressions: CONCLUSION: No evidence of acute abdominal or pelvic process. No masses are identified. Probable bilateral adrenal adenomas Diverticulosis without evidence of diverticulitis. Imaging studies and lab results are reviewed. Patient is encouraged to follow- up with his primary care provider and return immediately with acute worsening symptoms. Diagnosis Primary Impression: Gastritis Qualified Codes: K29.70 - Gastritis, unspecified, without bleeding Additional Impression: Adrenal adenoma Qualified Codes: D35.00 - Benign neoplasm of unspecified adrenal gland Referrals: In Home Tutor Primary Care Physician Patient Instructions: Diet for Stomach Ulcers and Gastritis (ED), General Instructions Departure Forms: Tests/Procedures, Work Release Enter return to work date: Feb 01, 2018 Additional Instructions: Avoid abrasive and acidic foods Clear liquid, advance as tolerated Follow-up with primary care provider See gastroenterology evaluation Return immediately with acute worsening symptoms Med/Other Pt SpecificInfo: Prescription(s) given Scripts Pantoprazole (Protonix) 40 Mg Tab 40 MG PO DAILY for Ulcer Prevention, #14 TAB 0 Refills Prov: Lisseth Restrepo 01/29/18 Disposition: 01 DISCHARGE HOME Condition: Stable Lisseth Restrepo Jan 29, 2018 18:43
[2018-01-29] MEDS ORDERED: SODIUM CHLOR 0.9% 1000 ML INJ 1,000 ML IV ONE (19:00)
[2018-01-29] MEDS ORDERED: KETOROLAC TROMETHAMINE 30 MG/ML (IVP) VIAL IV PUSH ONE (19:00)
[2018-01-29] MEDS ORDERED: PANTOPRAZOLE SODIUM 40 MG VIAL IV PUSH ONE (19:00)
[2018-01-29] MEDS ORDERED: IOHEXOL 350 MG/ML 10 ML VIAL (for RAD DIAG) IVCONTRAST ONE (19:50)
--- NOTE | 2018-01-29 20:41 | RADRPT ---
EXAM DATE: 01/29/2018 7:49 PM EDT AGE/SEX: 37 years / Male INDICATIONS: Diffuse abdominal pain, nausea vomiting. Blood in emesis. CLINICAL DATA: This is the patient's initial encounter. Patient reports that signs and symptoms have been present for 1 day and indicates a pain score of 5/10. MEDICAL/SURGICAL HISTORY: None. None. ORAL CONTRAST: No oral contrast ingested. RADIATION DOSE: 7.72 CTDI (mGy) COMPARISON: No prior exams available for comparison. TECHNIQUE: Multiple contiguous axial images were obtained through the abdomen and pelvis following b olus infusion of 75 ml Omnipaque 350 (iohexol) nonionic water-soluble contrast as a single exam dos e. No oral contrast ingested. Using automated exposure control and adjustment of the mA and/or kV ac cording to patient size, radiation dose was kept as low as reasonably achievable to obtain optimal di agnostic quality images. DICOM format image data is available electronically for review and comparis on. FINDINGS: Examination of the lung bases demonstrates no abnormality. No pleural fluid is identified. No pulmona ry nodules are present. The liver and spleen are normal in size and no focal defects are identified. The gallbladder and pancreas are unremarkable. No intrahepatic or extrahepatic ductal dilatation is seen. The kidneys are normal bilaterally without evidence of mass or hydronephrosis. There are bilat eral adrenal masses measuring 2.2 cm on the right and 8 mm on the left likely reflecting adenomas. MR I is recommended for further evaluation if clinically indicated. Examination of the pelvis demonstrates no evidence of free fluid or pelvic mass. No abnormally enlarg ed inguinal or retroperitoneal lymph nodes are present. The bladder is unremarkable. There is diverti culosis without evidence of diverticulitis. CONCLUSION: No evidence of acute abdominal or pelvic process. No masses are identified. Probable bilateral adrenal adenomas Diverticulosis without evidence of diverticulitis. Electronically signed by: Lincoln Corbett MD 01/29/2018 8:40 PM EDT
[2018-01-29 21:06] VITALS: BP 99/58; PULSE 88; RESP 16; O2SAT 98
[2018-01-29] MEDS ORDERED: PROT40TA PO (21:06)
--- NOTE | 2018-01-30 15:13 | EKG ---
Date Performed: 01/29/2018 Time Performed: 18:37:49 PTAGE: 37 years EKG: Sinus rhythm WITH SINUS ARRHYTHMIA NORMAL ECG Since PREVIOUS TRACING , no significant change noted PREVIOUS TRACIN09/07/2016 22.45 DOCTOR: Vitaliy Olivas Interpretating Date/Time 01/30/2018 15:09:39
== END 2018-01-29 21:25 | disposition home or self-care (01) ==
LOC: NEPC 16:21
DX: K29.70 Gastritis, unspecified, without bleeding (principal); D35.00 Benign neoplasm of unspecified adrenal gland; F17.200 Nicotine dependence, unspecified, uncomplicated; I49.8 Other specified cardiac arrhythmias
CPT/HCPCS: 74177; 80053; 85025; 85610; 85730; 86850; 86900; 86901; 93005; 96374; 96375; 99284; C9113; J1885; J7030; Q9967